=== PATIENT | male | born 1955 | race Caucasian/White ===

== ENCOUNTER 2018-11-08 08:08 | Inpatient (IN) | payer MEDICARE, MEDICAID | END 2018-11-11 12:13 | disposition home or self-care (01) | LOC: ER 21:54 → SUR 3N 11-11 00:45 → ER 08:08 → PACU 21:54 → CICU 2S 11-09 02:11 → PACU 23:46 | PROC: 04CN0ZZ Extirpation of Matter from Left Popliteal Artery, Open Approach (ICD-10-PCS; principal; 2018-11-08 01:15) | PROC: 06BP0ZZ Excision of Right Saphenous Vein, Open Approach (ICD-10-PCS; 2018-11-08 01:15) | PROC: 047Q0ZZ Dilation of Left Anterior Tibial Artery, Open Approach (ICD-10-PCS; 2018-11-08 01:15) | PROC: 04CQ0ZZ Extirpation of Matter from Left Anterior Tibial Artery, Open Approach (ICD-10-PCS; 2018-11-08 01:15) | PROC: 041N09Q Bypass Left Popliteal Artery to Lower Extremity Artery with Autologous Venous Tissue, Open Approach (ICD-10-PCS; 2018-11-08 01:15) | DX: T82.868A Thrombosis due to vascular prosthetic devices, implants and grafts, initial encounter (principal); T82.898A Other specified complication of vascular prosthetic devices, implants and grafts, initial encounter; I70.209 Unspecified atherosclerosis of native arteries of extremities, unspecified extremity ==